=== PATIENT | female | born 1975 | race Caucasian/White ===

== ENCOUNTER 2018-02-14 10:15 | Outpatient (CLI) | payer BC ==
--- NOTE | 2018-02-26 12:06 | Mammography Report ---
DIGITAL SCREENING MAMMOGRAM: 02/14/2018 HISTORY: Baseline. TECHNIQUE: Bilateral digital CC and MLO projections. FINDINGS: There is extensive fatty replacement of the breast tissue. There is no dominant mass, architectural distortion, skin thickening, suspicious microcalcifications, or other finding. IMPRESSION: NEGATIVE. BI-RADS CODE 1-NEGATIVE. SUGGEST ROUTINE ANNUAL SCREENING. STANDARD QUALIFYING STATEMENTS: 1. This examination was reviewed with the aid of Computer-Aided Detection (CAD). 2. A negative or benign imaging report should not delay biopsy if clinically suspicious findings are present. Consider surgical consultation if warranted. More than 5% of cancers are not identified by imaging. 3. Dense breasts may obscure an underlying neoplasm. TD: 02/26/2018 12:05
== END 2018-02-14 10:16 | disposition home or self-care (01) ==
LOC: DI.N 10:15
PROVIDERS: ATTEND Physician Assistant Medical
DX: Z12.31 Encounter for screening mammogram for malignant neoplasm of breast (principal)
CPT/HCPCS: 77067